=== PATIENT | female | born 1990 | race Caucasian/White ===

== ENCOUNTER → 2017-01-12 | Outpatient (CLI) | payer MEDICAID | LOC: BMCIMAGING 10:42 | PROVIDERS: ATTEND Internal Medicine | DX: Z12.39 Encounter for other screening for malignant neoplasm of breast (principal); N63 Unspecified lump in breast; N64.4 Mastodynia ==

== ENCOUNTER 2017-08-04 16:40 | Emergency (ER) | payer SELFPAY ==
[2017-08-04 16:52] VITALS: TEMP 97.7
[2017-08-04] MEDS ORDERED: NS 1,000 ML IV ONE (17:06)
--- NOTE | 2017-08-04 17:11 | EDPHY ---
H & P Stated Complaint: 3 days abd bloating/pain and n/v Time Seen by Provider: 08/04/17 16:55 HPI/ROS: Chief complaint: Abdominal discomfort History of present illness: This is a 27-year-old female who presents to the emergency department for evaluation of abdominal discomfort. Patient reports she has had abdominal discomfort for the last 3 days. Primarily in the lower aspect of her abdomen. She states she feels bloated in the area, and the area feels "tight." In addition, she states that after she eats she has pain in the upper aspect of her abdomen in the epigastric region. She is currently trying to get , she states by a natural methods. One week ago she had a menstrual cycle. It was different than what she normally experiences, normally her cycle last 3 days but this time it last 5 days and then she had some mucous discharge. She denies other associated signs or symptoms including no fevers. No nausea, vomiting or diarrhea. No urinary symptoms. Review of systems: A 10 point review of systems was obtained and other than described above was negative - Personal History LMP (Females 10-55): 1-7 Days Ago Current Tetanus/Diphtheria Vaccine: Yes - Medical/Surgical History Hx Asthma: No Hx Chronic Respiratory Disease: No Hx Diabetes: No Hx Cardiac Disease: No Hx Renal Disease: No Hx Cirrhosis: No Hx Alcoholism: No Hx HIV/AIDS: No Hx Splenectomy or Spleen Trauma: No Other PMH: denies - Social History Smoking Status: Former smoker Additional Social History: She is in a monogamous relationship, no STI concerns. - Physical Exam Exam: General Appearance: Alert, nontoxic. Eyes: Pupils equal and round no pallor or injection. ENT, Mouth: Mucous membranes moist. Respiratory: There are no retractions, lungs are clear to auscultation. Cardiovascular: Regular rate and rhythm. Gastrointestinal: Bowel sounds are normal. Abdomen is soft, nondistended. There is diffuse tenderness. No Stevens sign. No McBurney point tenderness. No peritoneal signs. Neurological: Alert and oriented x4. Strength and sensation intact and symmetrical. Skin: Warm and dry, no rashes. Musculoskeletal: Neck is supple non tender. Extremities are symmetrical, full range of motion. Psychiatric: Patient is oriented X 3, there is no agitation. Constitutional: Initial Vital Signs Temperature (C) 36.5 C 08/04/17 16:49 Heart Rate 83 03/01/18 16:49 Respiratory Rate 16 08/04/17 16:49 Blood Pressure 98/69 L 08/04/17 16:49 O2 Sat (%) 94 08/04/17 16:49 O2 Delivery Mode Room Air Allergies/Adverse Reactions: No Known Allergies Allergy (Verified 08/04/17 16:48) Home Medications: Medication Instructions Recorded NK [No Known Home Meds] 08/04/17 Medical Decision Making - Diagnostics Imaging Results: Imaging Impressions Abdomen Ultrasound 08/04/17 17:08 Impression: Suboptimal evaluation of the gallbladder due to a recent meal. No obvious source for pain identified. Consider repeat exam after a 6 hour fast. Pelvic/Renal Ultrasound 08/04/17 17:08 Impression: 1. Collapsing left ovarian cyst. Otherwise normal Results called to Ovidio Lindsay at 6:11 pm. Imaging: Discussed imaging studies w/ yardage caller Radiologist ED Course/Re-evaluation: Patient seen under the supervision of my secondary supervising physician Dr. Hardik Bradley. Patient presents to the emergency department for abdominal discomfort. On presentation she is nontoxic. Vital signs are stable. There is mild tenderness but no peritoneal signs on evaluation of the abdomen. Blood studies and urinalysis unremarkable. Ultrasound confirms a left ovarian cyst, most her pain is the left lower aspect of the abdomen. Ultrasound of the right upper quadrant is suboptimal but lab studies are unremarkable. She has not required any pain medications. Repeat abdominal exam is benign. She will be discharged home. Home care is discussed. She is given referral information to both a primary care doctor and OBGYN. Home care is discussed. Return precautions are given. Differential Diagnosis: Included but not limited to an associated complications including ectopic and miscarriage, vaginal infections of multiple etiologies the urinary tract disease, colitis, gastritis, biliary tract disease, pancreatitis - Data Points Laboratory Results: Laboratory Results 08/04/17 17:15 08/04/17 17:15 08/04/17 08/04/17 08/04/17 17:15 17:15 17:15 WBC 6.57 10^3/uL 10^3/uL (3.80-9.50) RBC 4.70 10^6/uL 10^6/uL (4.18-5.33) Hgb 14.8 g/dL g/dL (12.6-16.3) Hct 43.8 % % (38.0-47.0) MCV 93.2 fL fL (81.5-99.8) MCH 31.5 pg pg (27.9-34.1) MCHC 33.8 g/dL g/dL (32.4-36.7) RDW 12.9 % % (11.5-15.2) Plt Count 251 10^3/uL 10^3/uL (150-400) MPV 9.1 fL fL (8.7-11.7) Neut % (Auto) 46.1 % % (39.3-74.2) Lymph % (Auto) 34.2 % % (15.0-45.0) Kemper % (Auto) 14.8 % H % (4.5-13.0) Eos % (Auto) 3.5 % % (0.6-7.6) Baso % (Auto) 1.2 % % (0.3-1.7) Nucleat RBC Rel Count 0.0 % % (0.0-0.2) Absolute Neuts (auto) 3.03 10^3/uL 10^3/uL (1.70-6.50) Absolute Lymphs (auto) 2.25 10^3/uL 10^3/uL (1.00-3.00) Absolute Monos (auto) 0.97 10^3/uL H 10^3/uL (0.30-0.80) Absolute Eos (auto) 0.23 10^3/uL 10^3/uL (0.03-0.40) Absolute Basos (auto) 0.08 10^3/uL 10^3/uL (0.02-0.10) Absolute Nucleated RBC 0.00 10^3/uL 10^3/uL (0-0.01) Immature Gran % 0.2 % % (0.0-1.1) Immature Gran # 0.01 10^3/uL 10^3/uL (0.00-0.10) Sodium 138 mEq/L mEq/L (135-145) Potassium 4.2 mEq/L mEq/L (3.5-5.2) Chloride 104 mEq/L mEq/L (97-110) Carbon Dioxide 23 mEq/l mEq/l (22-31) Anion Gap 11 mEq/L mEq/L (8-16) BUN 22 mg/dL mg/dL (7-23) Creatinine 0.8 mg/dL mg/dL (0.6-1.0) Estimated GFR > 60 Glucose 73 mg/dL mg/dL (70-100) Calcium 10.0 mg/dL mg/dL (8.5-10.4) Total Bilirubin 0.2 mg/dL mg/dL (0.1-1.4) Conjugated Bilirubin 0.2 mg/dL mg/dL (0.0-0.5) Unconjugated Bilirubin 0.0 mg/dL mg/dL (0.0-1.1) AST 21 IU/L IU/L (14-46) ALT 27 IU/L IU/L (9-52) Alkaline Phosphatase 50 IU/L IU/L (38-126) Total Protein 7.3 g/dL g/dL (6.3-8.2) Albumin 4.5 g/dL g/dL (3.5-5.0) Lipase 87 IU/L IU/L (23-300) Beta HCG, Qual NEGATIVE Urine Color Urine Appearance Urine pH Ur Specific [place] Urine Protein Urine Ketones Urine Blood Urine Nitrate Urine Bilirubin Urine Urobilinogen Ur Leukocyte Esterase Urine RBC Urine WBC Ur Epithelial Cells Urine Mucus Urine Glucose Urine Test 08/04/17 08/04/17 16:50 16:50 WBC RBC Hgb Hct MCV MCH MCHC RDW Plt Count MPV Neut % (Auto) Lymph % (Auto) Kemper % (Auto) Eos % (Auto) Baso % (Auto) Nucleat RBC Rel Count Absolute Neuts (auto) Absolute Lymphs (auto) Absolute Monos (auto) Absolute Eos (auto) Absolute Basos (auto) Absolute Nucleated RBC Immature Gran % Immature Gran # Sodium Potassium Chloride Carbon Dioxide Anion Gap BUN Creatinine Estimated GFR Glucose Calcium Total Bilirubin Conjugated Bilirubin Unconjugated Bilirubin AST ALT Alkaline Phosphatase Total Protein Albumin Lipase Beta HCG, Qual Urine Color YELLOW Urine Appearance CLEAR Urine pH 6.0 (5.0-7.5) Ur Specific [place] 1.024 (1.002-1.030) Urine Protein NEGATIVE (NEGATIVE) Urine Ketones NEGATIVE (NEGATIVE) Urine Blood NEGATIVE (NEGATIVE) Urine Nitrate NEGATIVE (NEGATIVE) Urine Bilirubin NEGATIVE (NEGATIVE) Urine Urobilinogen NEGATIVE EU EU (0.2-1.0) Ur Leukocyte Esterase NEGATIVE (NEGATIVE) Urine RBC 1-3 /hpf /hpf (0-3) Urine WBC 1-3 /hpf /hpf (0-3) Ur Epithelial Cells 1+ /lpf /lpf (NONE-1+) Urine Mucus TRACE /lpf /lpf (NONE-1+) Urine Glucose NEGATIVE (NEGATIVE) Urine Test NEGATIVE Medications Given: Discontinued Medications Sodium Chloride (Ns) 1,000 mls @ 0 mls/hr IV EDNOW ONE; Wide Open PRN Reason: Protocol Stop: 08/04/17 17:07 Last Admin: 08/04/17 17:18 Dose: 1,000 mls Departure - Departure Disposition: Home, Routine, Self-Care Clinical Impression: Abdominal pain Qualifiers: Abdominal location: generalized Qualified Code(s): R10.84 - Generalized abdominal pain Ovarian cyst Qualifiers: Laterality: left Qualified Code(s): N83.202 - Unspecified ovarian cyst, left side Condition: Good Instructions: Ovarian Cyst (ED), Abdominal Pain (ED) Additional Instructions: Follow-up with your primary care doctor early next week for recheck Use ibuprofen 600 mg 3 times a day for the next 2-3 days If symptoms worsen or new symptoms develop return to the emergency room for recheck Referrals: NONE *PRIMARY CARE P,. [Primary Care Provider] - As per Instructions [facility],. [Clinic] - As per Instructions Cinda Hernandes MD [Medical Doctor] - As per Instructions Marilu Hodgson MD [Medical Doctor] - As per Instructions
[2017-08-04 17:23] LABS: PLATELET COUNT 251 10^3/uL (150-400)
[2017-08-04 18:32] VITALS: BP 115/82; PULSE 85; RESP 18; O2SAT 96
== END 2017-08-04 18:34 | disposition home or self-care (01) ==
DX: N83.202 Unspecified ovarian cyst, left side (principal); E86.9 Volume depletion, unspecified; Z87.891 Personal history of nicotine dependence